=== PATIENT | female | born 1970 | race African-American/Black ===

== ENCOUNTER → 2016-10-22 | Outpatient (CLI) | payer BC ==
[~2016-10-22] MED LIST: ALEVE220 MG; BUTALB-APAP-CA1 EACH; FLEXERIL; IBUPROFEN 200200 M1; LISINOPRIL-HCT1 EAC1 PO; NEURONTIN 300300 M1 PO; NEURONTIN 300M300 M2; NORCO 5-325 TA1 EACH PO; TOPAMAX 100 MG100 MG; XANAX 0.25 MG0.25 MG PO
== END ==
LOC: NUC 10-09 10:35
DX: R07.9 Chest pain, unspecified (principal)